=== PATIENT | female | born 1945 | race Caucasian/White ===

== ENCOUNTER → 2019-06-05 | Outpatient (CLI) | payer MEDICARE ==
--- NOTE | 2019-06-05 13:43 | Diagnostic Imaging Report ---
Exam: KUB - 2 views Indication: Renal calculus Comparison: None Findings: Right and left internal nephroureteral stents in place. 4 mm left lower pole renal calculus. No radiographically apparent right renal calculus. Nonobstructive bowel gas pattern. No free air. Status post cholecystectomy. Degenerative changes of the visualized spine. Mild degenerative changes of both hip joints. Partially visualized lung bases are clear. Impression: Bilateral internal nephroureteral stents in place. 4 mm left lower pole renal calculus. No radiographically apparent right renal calculus. Signed by: Francis Amaro MD on 06/05/2019 1:40 PM
== END ==
LOC: RAD 12:58
PROVIDERS: ATTEND Urology
DX: N20.0 Calculus of kidney (principal)
CPT/HCPCS: 74018

== ENCOUNTER → 2020-12-31 | Day surgery (SDC) | payer MEDICARE ==
[2020-12-29 11:50] LABS: BASOPHILS % 0.3 % (0.0-1.0); EOSINOPHILS # (AUTO) 0.1 (0.0-0.4); HEMATOCRIT 44.4 % (34.2-44.1); HEMOGLOBIN 13.9 g/dL (12.0-16.0); LYMPHOCYTES # (AUTO) 1.4 (1.0-3.2); LYMPHOCYTES % 22.9 % (18.0-39.1); MEAN CORPUSCULAR HEMOGLOBIN 30.8 pg (28-32); MEAN CORPUSCULAR HGB CONC 31.3 g/dL (31-35); MEAN CORPUSCULAR VOLUME 98.4 fL (81-99); MONOCYTES # (AUTO) 0.6 (0.2-0.8); MONOCYTES % 8.7 % (4.4-11.3); NEUTROPHILS # (AUTO) 4.2 (2.1-6.9); NEUTROPHILS % 66.8 % (38.7-80.0); PLATELET COUNT 165 x10e3/uL (140-360); RED BLOOD COUNT 4.51 x10e6/uL (3.6-5.1); RED CELL DISTRIBUTION WIDTH 12.9 % (11.7-14.4)
[2020-12-29 12:12] LABS: ANION GAP 12.1 mmol/L (8-16); CALCIUM 9.8 mg/dL (8.4-10.2); CREATININE, SERUM 0.95 mg/dL (0.57-1.11); POTASSIUM 5.1 mmol/L (3.5-5.1)
[~2020-12-31] MED LIST: ATENOLOL50 MG PO; BELLADONNA/OPIUM 30 MG SUPP RC ONE; CEFTRIAXONE 1 GM VIAL ONE; IOPAMIDOL 300MG/ML 50ML INFUS..BTL IV ONE; LEFLUNOMIDE10 MG PO; LEVOTHYROXINE50 MCG PO; LIOTHYRONINE SO5 MCG PO; SIMPONI50 MG/0.1 IV; SODIUM CHLORIDE 0.9% 50ML 50 ML ONE; VICODIN HP 10-1 EAC1 PO
[2020-12-31 09:30] VITALS: BP 138/82
== END | disposition home or self-care (01) ==
LOC: OR 05:55
PROVIDERS: ATTEND Urology
DX: N20.0 Calculus of kidney (principal); N39.0 Urinary tract infection, site not specified; Q63.2 Ectopic kidney; N81.89 Other female genital prolapse; N81.6 Rectocele; N36.41 Hypermobility of urethra; N39.41 Urge incontinence; R35.1 Nocturia; N32.81 Overactive bladder; N95.2 Postmenopausal atrophic vaginitis; I10 Essential (primary) hypertension; E03.9 Hypothyroidism, unspecified; M06.9 Rheumatoid arthritis, unspecified; R06.09 Other forms of dyspnea; I45.10 Unspecified right bundle-branch block; E66.9 Obesity, unspecified; Z01.810 Encounter for preprocedural cardiovascular examination; Z01.812 Encounter for preprocedural laboratory examination; Z01.818 Encounter for other preprocedural examination; Z20.822 Contact with and (suspected) exposure to COVID-19; Z87.891 Personal history of nicotine dependence; Z80.52 Family history of malignant neoplasm of bladder; Z68.35 Body mass index [BMI] 35.0-35.9, adult
CPT/HCPCS: 36415; 50590; 71046; 74018; 80048; 83970; 84550; 85025; 93005; C1758; J0696; Q9967; U0002

== ENCOUNTER → 2021-08-24 | Outpatient (CLI) | payer MEDICARE ==
[~2021-08-24] MED LIST changes: -BELLADONNA/OPIUM 30 MG SUPP RC ONE; -CEFTRIAXONE 1 GM VIAL ONE; -IOPAMIDOL 300MG/ML 50ML INFUS..BTL IV ONE; +IOPAMIDOL 370 MG/ML 100 ML INFUS..BTL INJ ONE; +SODIUM CHLORIDE 0.9% 250ML 250 ML ONE; -SODIUM CHLORIDE 0.9% 50ML 50 ML ONE
[2021-08-24 12:11] LABS: CREATININE, SERUM 0.79 mg/dL (0.57-1.11)
== END ==
LOC: CT 11:22
PROVIDERS: ATTEND Urology
DX: R31.21 Asymptomatic microscopic hematuria (principal); N39.0 Urinary tract infection, site not specified; N23 Unspecified renal colic
CPT/HCPCS: 36415; 74178; 82565; 84520; J7050; Q9967